=== PATIENT | male | born 1980 | race Caucasian/White ===

== ENCOUNTER 2018-08-22 17:53 | Emergency (ER) | payer BC ==
[2018-08-22] MEDS ORDERED: Diphtheria,Pertussis(Acell),Tetanus Vaccine 0.5 ML Syringe IM ONE (18:10)
--- NOTE | 2018-08-22 18:10 | EDM.PDOC ---
ED HPI GENERAL MEDICAL PROBLEM - General Chief Complaint: Upper Extremity Injury/Pain Stated Complaint: SPOKE TO NURSE Time Seen by Provider: 08/22/18 18:00 Source of Information: Reports: Patient History Limitations: Reports: No Limitations - History of Present Illness INITIAL COMMENTS - FREE TEXT/NARRATIVE: History of present illness: []Patient crushed his right middle and ring fingers 2 days ago with pipes at work. Patient has pressure under the ring and middle nail plates Review of systems: As per history of present illness and below otherwise all systems reviewed and negative. Past medical history: As per history of present illness and as reviewed below otherwise noncontributory. Surgical history: As per history of present illness and as reviewed below otherwise noncontributory. Social history: No reported history of drug or alcohol abuse. Family history: As per history of present illness and as reviewed below otherwise noncontributory. Physical exam: General: Well developed, well nourished in NAD HEENT: Atraumatic, normocephalic, pupils reactive, negative for conjunctival pallor or scleral icterus, mucous membranes moist, throat clear, neck supple, nontender, trachea midline. Lungs: Clear to auscultation, breath sounds equal bilaterally, chest nontender. Heart: S1S2, regular, negative for clicks, rubs, or JVD. Abdomen: NABS, Soft, nondistended, nontender. Negative for masses or hepatosplenomegaly. Negative for costovertebral tenderness. Pelvis: Stable nontender. Genitourinary: Deferred. Rectal: Deferred. Extremities: Right hand with middle and index finger nail plate hematomas, full range of motion, brisk capillary refill, negative for cords or calf pain. Neurovascular unremarkable. Neuro: Awake, alert, oriented. Cranial nerves II through XII unremarkable. Cerebellum unremarkable. Motor and sensory unremarkable throughout. Exam nonfocal. Skin:warm and dry Diagnostics: X-ray right hand fractures Therapeutics: Both nail plates were opened with battery powered electrocautery with immediate blood drainage ED Course: Improved Impression: Subungual hematomas right index and ring fingers Prescriptions: None Plan: Follow-up with primary care as needed Definitive disposition and diagnosis as appropriate pending reevaluation and review of above. Right Hand Pain Score (Numeric/FACES): 6 - Related Data Allergies Allergy/AdvReac Type Severity Reaction Status Date / Time No Known Allergies Allergy Verified 08/22/18 18:01 Home Meds: Home Meds . [No Known Home Meds] 08/22/18 [History] Past Medical History Gastrointestinal History: Reports: Irritable Bowel Syndrome - Infectious Disease History Infectious Disease History: Reports: Chicken Pox Social & Family History - Family History Family Medical History: Noncontributory - Tobacco Use Smoking Status *Q: Heavy Tobacco Smoker Years of Tobacco use: 10 Packs/Tins Daily: 1 - Caffeine Use Caffeine Use: Reports: Energy Drinks, Soda - Recreational Drug Use Recreational Drug Use: No Review of Systems - Review of Systems Review Of Systems: ROS reveals no pertinent complaints other than HPI. ED EXAM, GENERAL - Physical Exam Exam: See Below Course - Vital Signs Last Recorded V/S: Last Vital Signs Temp 98.3 F 08/22/18 18:02 Pulse 92 08/22/18 18:02 Resp 18 08/22/18 18:02 BP 151/82 H 08/22/18 18:02 Pulse Ox 96 08/22/18 18:02 - Orders/Labs/Meds Orders: Active Orders 24 hr Category Date Time Status Vaccines to be Administered [RC] PER UNIT ROUTINE Care 08/22/18 18:10 Active Hand Comp Min 3V Rt [CR] Stat Exams 08/22/18 18:07 Taken Meds: Medications Discontinued Medications Generic Name Dose Route Start Last Admin Trade Name Gianna PRN Reason Stop Dose Admin Diphtheria/Tetanus/Acell Pertussis 0.5 ml 08/22/18 18:10 08/22/18 18:21 Adacel IM 08/22/18 18:11 0.5 ml .ONCE ONE Administration Departure - Departure Time of Disposition: 18:49 Disposition: Home, Self-Care 01 Condition: Good Clinical Impression: Subungual hematoma of finger of right hand Qualifiers: Encounter type: initial encounter Qualified Code(s): S60.10XA - Contusion of unspecified finger with damage to nail, initial encounter - Discharge Information *PRESCRIPTION DRUG MONITORING PROGRAM REVIEWED*: No *COPY OF PRESCRIPTION DRUG MONITORING REPORT IN PATIENT RIA: No Referrals: PCP,Unknown [Primary Care Provider] - Forms: ED Department Discharge Additional Instructions: The following information is given to patients seen in the emergency department who are being discharged to home. This information is to outline your options for follow-up care. We provide all patients seen in our emergency department with a follow-up referral. The need for follow-up, as well as the timing and circumstances, are variable depending upon the specifics of your emergency department visit. If you don't have a primary care physician on staff, we will provide you with a referral. We always advise you to contact your personal physician following an emergency department visit to inform them of the circumstance of the visit and for follow-up with them and/or the need for any referrals to a consulting specialist. The emergency department will also refer you to a specialist when appropriate. This referral assures that you have the opportunity for follow-up care with a specialist. All of these measure are taken in an effort to provide you with optimal care, which includes your follow-up. Under all circumstances we always encourage you to contact your private physician who remains a resource for coordinating your care. When calling for follow-up care, please make the office aware that this follow-up is from your recent emergency room visit. If for any reason you are refused follow-up, please contact the [facility] at and asked to speak to the emergency department charge nurse. [facility] [address] [place] [address] - My Orders Last 24 Hours: My Active Orders 08/22/18 18:07 Hand Comp Min 3V Rt [CR] Stat 08/22/18 18:10 Vaccines to be Administered [RC] PER UNIT ROUTINE - Assessment/Plan Last 24 Hours: My Active Orders 08/22/18 18:07 Hand Comp Min 3V Rt [CR] Stat 08/22/18 18:10 Vaccines to be Administered [RC] PER UNIT ROUTINE
--- NOTE | 2018-08-22 18:46 | CR ---
INDICATION: Crush injury 3rd and 4th digits TECHNIQUE: Three views right hand COMPARISON: None FINDINGS: Bones: Alignment is normal. No fractures or bone lesions. Joint spaces: Unremarkable. Soft tissues: Unremarkable. IMPRESSION: Negative. Dictated by Gabo Farah MD @ 08/22/2018 6:44:16 PM Dictated by: Gabo Farah MD @ 08/22/2018 18:44:27 (Electronically Signed)
== END 2018-08-22 18:59 | disposition home or self-care (01) ==
LOC: MW.ED 17:53
DX: S60.121A Contusion of right index finger with damage to nail, initial encounter (principal); S60.141A Contusion of right ring finger with damage to nail, initial encounter; W23.0XXA Caught, crushed, jammed, or pinched between moving objects, initial encounter; Z23 Encounter for immunization
CPT/HCPCS: 73130-26-RT; 73130-RT; 90471; 90715; 99283-25